=== PATIENT | female | born 1945 | race African-American/Black ===

== ENCOUNTER 2020-07-31 19:21 | Emergency (ER) | payer MEDICARE, OTHER | END 2020-07-31 20:20 | disposition short-term general hospital (02) | LOC: NAV ERS 19:21 | DX: M79.604 Pain in right leg (principal); R60.0 Localized edema | CPT/HCPCS: 99284 ==

== ENCOUNTER 2022-06-24 11:34 | Emergency (ER) | payer MEDICARE, OTHER | END 2022-06-24 12:25 | disposition home or self-care (01) | LOC: NAV ERS 11:34 | DX: J01.90 Acute sinusitis, unspecified (principal); B96.89 Other specified bacterial agents as the cause of diseases classified elsewhere; I10 Essential (primary) hypertension; E03.9 Hypothyroidism, unspecified; E78.2 Mixed hyperlipidemia; Z79.899 Other long term (current) drug therapy | CPT/HCPCS: 99283 ==